=== PATIENT | male | born 1975 | race Caucasian/White ===

== ENCOUNTER 2019-02-19 08:47 | Day surgery (SDC) | payer OTHER ==
[~2019-02-19 08:47] MED LIST: Sodium Chloride 0.9% 10 ML Syringe FLUSH PRN
[2019-02-19] MEDS ORDERED: Propofol 200 MG/20 ML SDV IV ONE (08:48)
[2019-02-19] MEDS ORDERED: Lidocaine 2% 100 MG/5 ML Syringe IVPUSH ONE (08:48)
[2019-02-19] MEDS: Lactated Ringers 1,000 ML IV SCH (09:25)
--- NOTE | 2019-02-19 10:32 | PCM.OPNOTE ---
- General Post-Op/Procedure Note Date of Surgery/Procedure: 02/19/19 Operative Procedure(s): egd with bx Findings: gastritis Pre Op Diagnosis: epigastric abd pain. melena Post-Op Diagnosis: gastritis Anesthesia Technique: MURRAY Primary Surgeon: Ulisses Holloway Anesthesia Provider: Wes Humphrey Pathology: stomach Complications: None Condition: Good Free Text/Narrative:: see dictation
--- NOTE | 2019-02-19 11:06 | OR ---
DATE OF OPERATION: 02/19/2019 SURGEON: Ulisses Holloway MD PROCEDURE PERFORMED: Upper endoscopy with cold forceps biopsy. PREOPERATIVE DIAGNOSES: Personal history of melena and epigastric abdominal pain. POSTOPERATIVE DIAGNOSIS: Gastritis. INDICATIONS FOR PROCEDURE: This is a 43-year-old white male referred with a history of epigastric abdominal pain and some melena in the past. The patient has admitted to some heavy NSAID use as well. He was offered and accepted an upper endoscopy. DESCRIPTION OF OPERATION: After an excellent IV sedation was administered, the bite block was inserted. The flexible endoscope was passed without difficulty down the patient's esophagus into the stomach. The stomach was insufflated, scope passed through the pylorus to the second portion of the duodenum and slowly withdrawn. The following findings were noted. The duodenum essentially was unremarkable. The stomach demonstrated some diffuse gastritis. Biopsies and photos were taken. The esophagus was unremarkable. The stomach was deflated, scope was removed. The patient tolerated the procedure well. Results by letter. /[id number] /ANGELINE
[2019-02-19 11:13] VITALS: BP 145/99
== END 2019-02-19 11:18 | disposition home or self-care (01) ==
LOC: FB.SDS 08:47
PROVIDERS: ATTEND Surgery
DX: K29.50 Unspecified chronic gastritis without bleeding (principal); K31.9 Disease of stomach and duodenum, unspecified; E66.01 Morbid (severe) obesity due to excess calories; Z68.30 Body mass index [BMI] 30.0-30.9, adult; G47.33 Obstructive sleep apnea (adult) (pediatric); Z87.891 Personal history of nicotine dependence; Z79.899 Other long term (current) drug therapy; Z99.89 Dependence on other enabling machines and devices; Z87.19 Personal history of other diseases of the digestive system
CPT/HCPCS: 43239; 88305; 88342; J2001; J2704; J7120

== ENCOUNTER 2020-09-06 20:39 | Emergency (ER) | payer OTHER ==
[2020-09-06] MEDS ORDERED: Ketorolac 30 MG/ML SDV IVPUSH ONE (20:50)
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
[2020-09-06] MEDS ORDERED: Sodium Chloride 0.9% 1,000 ML IV SCH (21:00)
[2020-09-06 23:39] VITALS: BP 132/84; PULSE 90
== END 2020-09-06 23:35 | disposition home or self-care (01) ==
LOC: FB.ED 20:39
DX: M23.207 Derangement of unspecified meniscus due to old tear or injury, left knee (principal); M25.552 Pain in left hip; E78.00 Pure hypercholesterolemia, unspecified; E66.9 Obesity, unspecified; K21.9 Gastro-esophageal reflux disease without esophagitis; Z79.899 Other long term (current) drug therapy; W10.2XXA Fall (on)(from) incline, initial encounter
CPT/HCPCS: 36415; 72192; 73562; 80048; 85027; 96374; 99284; J1885; J7030; 99283

== ENCOUNTER 2022-02-28 17:00 | Emergency (ER) | payer OTHER ==
[2022-02-28] MEDS ORDERED: Sodium Chloride 0.9% 10 ML Syringe FLUSH PRN (17:15)
[2022-02-28] MEDS ORDERED: Aspirin 81 MG Tab.Chew PO ONE (17:17)
[2022-02-28 17:27] VITALS: BP 157/102; PULSE 69
== END 2022-02-28 19:20 | disposition home or self-care (01) ==
LOC: FB.ED 17:00
DX: R55 Syncope and collapse (principal); E78.00 Pure hypercholesterolemia, unspecified; I10 Essential (primary) hypertension; R79.89 Other specified abnormal findings of blood chemistry; E66.9 Obesity, unspecified; Z79.899 Other long term (current) drug therapy; Z68.35 Body mass index [BMI] 35.0-35.9, adult
CPT/HCPCS: 36415; 71045; 80053; 83735; 84484; 85025; 85379; 93005; 93010; 99284; 99284-25; A9270-GY